=== PATIENT | male | born 2000 | race African-American/Black ===

== ENCOUNTER 2020-12-11 12:34 | Emergency (ER) | payer OTHER ==
[~2020-12-11] VITALS: Ht 195.6 cm; Wt 90.7 kg
[2020-12-11] MEDS ORDERED: OLANZAPINE 10 MG VIAL IM ONE ×2 (12:47→12:54)
[2020-12-11] MEDS: OLANZAPINE 10 MG VIAL IM ONE (12:54)
[2020-12-11 13:01] LABS: BASOPHILS % (AUTO) 0.4 % (0.0-2.0); EOSINOPHILS % (AUTO) 2.3 % (0.0-6.0); HEMATOCRIT 39 % (39-51); HEMOGLOBIN 12.8 g/dL (13.5-17.5); LYMPHOCYTES # (AUTO) 1.6 K/uL (0.8-4.8); LYMPHOCYTES % (AUTO) 19.2 % (20.0-44.0); MEAN CORPUSCULAR HGB CONC 33 g/dl (31.0-36.0); MEAN CORPUSCULAR VOLUME 89 fL (80-96); MONOCYTES # (AUTO) 0.7 K/uL (0.1-1.30); MONOCYTES % (AUTO) 8.2 % (2.0-12.0); NEUTROPHILS # (AUTO) 5.9 K/uL (1.8-8.9); NEUTROPHILS % (AUTO) 69.9 % (43.0-81.0); PLATELET COUNT (AUTO) 212 K/uL (150-450); RED BLOOD CELL COUNT(AUTO) 4.34 MIL/uL (4.5-6.0); WHITE BLOOD COUNT (AUTO) 8.5 K/uL (4.3-11.0)
--- NOTE | 2020-12-11 13:03 | NUR ---
BIBMOTHER TO ER BED 13. PT DROWSY BUT ARROSUABLE. NOT IN RESP DISTRESS. AMBULATORY. PT BROUGHT IN D/T UNABLE TO CARE FOR HIMSELF BECAUSE OF HOMELESSNESS. PT HAS NOT BEEN ABLE TO TAKE HIS MEDICATION WHICH HELPS HIM WITH THE VOICES. WAS AT THE BEDSIDE FOR EVAL. ORDERS RECEIVED, NOTED AND CARRIED OUT.
[2020-12-11 13:20] LABS: CALCIUM, SERUM 8.2 mg/dL (8.5-10.1); CARBON DIOXIDE 31 mmol/L (21-32); CHLORIDE 103 mmol/L (98-107); CREATININE 1.3 mg/dL (0.6-1.3); GLUCOSE 81 mg/dL (74-106); POTASSIUM 3.4 mmol/L (3.5-5.1); SODIUM SERUM 139 mmol/L (136-145); UREA NITROGEN, BLOOD 9 mg/dL (7-18)
[2020-12-11 13:26] LABS: ALANINE AMINOTRANSFERASE 41 U/L (12-78); ALBUMIN 3.3 g/dL (3.4-5.0); ALKALINE PHOSPHATASE 71 U/L (46-116); ASPARTATE AMINOTRANSFERASE 38 U/L (15-37); BILIRUBIN,DIRECT 0.3 mg/dL (0.0-0.2); BILIRUBIN,TOTAL 2.1 mg/dL (0.2-1.0); TOTAL PROTEIN, SERUM 6.3 g/dL (6.4-8.2)
[2020-12-11 13:27] LABS: ACETAMINOPHEN < 10 ug/ml (10-30); ALCOHOL, BLOOD < 3 mg/dL (0-0)
--- NOTE | 2020-12-11 13:40 | NUR ---
PT STILL UNABLE TO PROVIDE URINE. MOTHER AT BEDSIDE ENCOURAGING PT TO URINATE.
--- NOTE | 2020-12-11 14:33 | NUR ---
mother number christopher power [phone]
--- NOTE | 2020-12-11 14:39 | NUR ---
[facility]
[2020-12-11] MEDS: LORAZEPAM INJ 2 MG/ML VIAL IM ONE (15:01)
[2020-12-11] MEDS: HALOPERIDOL LACTATE INJ 5 MG/ML VIAL IM ONE (15:02)
--- NOTE | 2020-12-11 15:02 | NUR ---
pt fighting and yelling ativan2 mg and haldol 5mg im rt deltoid im tolerated well
[2020-12-11 15:24] LABS: BILIRUBIN,URINE NEGATIVE (NEGATIVE); COLOR,URINE YELLOW (YELLOW); LEUKOCYTE ESTERASE ,URINE NEGATIVE (NEGATIVE); NITRITE, URINE NEGATIVE (NEGATIVE); PROTEIN,URINE NEGATIVE (NEGATIVE); UGLUCOSE NEGATIVE (NEGATIVE)
[2020-12-11 15:32] LABS: BACTERIA,URINE None seen /HPF (None Seen); RBC,URINE 0-2 /HPF (0-2); WBC,URINE 0-2 /HPF (0-3)
[2020-12-11 15:33] LABS: SQUAMOUS EPITHELIAL CELL,UR 0-2 /HPF (None Seen)
--- NOTE | 2020-12-11 17:38 | NUR ---
pt sleeping soundly cont to [facility]
--- NOTE | 2020-12-11 21:46 | NUR ---
expressive art therapist at bedside
--- NOTE | 2020-12-11 23:40 | NUR ---
PT IN BED SLEEPING. NAD NOTED
--- NOTE | 2020-12-12 01:45 | NUR ---
Patient is resting comfortably in bed with eyes closed. Easily aroused. VSS
--- NOTE | 2020-12-12 02:30 | NUR ---
Patient is resting comfortably in bed with eyes closed. Easily aroused. VSS
--- NOTE | 2020-12-12 03:45 | NUR ---
Pt resting with eyes closed connected to monitor. easily arousable
--- NOTE | 2020-12-12 04:45 | NUR ---
Patient is resting comfortably in bed with eyes closed. Easily aroused. VSS
--- NOTE | 2020-12-12 06:30 | NUR ---
pt sleeping, attached to monitor, vss
--- NOTE | 2020-12-12 09:09 | NUR ---
The patient is sleeping. Respiration regular and unlabored. Patient is in no apparent distress. Vital sigsn WNL. Will continue to monitor the patient.
[2020-12-12 13:58] VITALS: BP 126/77
--- NOTE | 2020-12-12 13:58 | NUR ---
THE PATIENT SLEEPING. RESPONSIVE TO TACTILE STIMULI. VITAL SIGNS WNL.
--- NOTE | 2020-12-12 19:25 | NUR ---
ACCEPTED [facility] DR [facility]LEY [phone]
--- NOTE | 2020-12-12 19:49 | NUR ---
CALLED TRANSPORT [facility] ETA 45 MINS.
--- NOTE | 2020-12-12 20:22 | NUR ---
REPORT GIVEN Jv PARSON AT [facility] [place]. [facility] AT BED SIDE TO PATCH WASHER THE PT.
== END 2020-12-12 20:35 ==
LOC: ER 12:35
DX: F20.9 Schizophrenia, unspecified (principal); Z59.0 Homelessness; Z91.14 Patient's other noncompliance with medication regimen; Z20.822 Contact with and (suspected) exposure to COVID-19
CPT/HCPCS: 36415; 80048; 80076; 80143; 80307; 80320; 81001; 85025; 87426; 96372 ×2; 99285; C9803; J2060; J3490 ×2; G0480

== ENCOUNTER → 2020-12-11 | Emergency (ER) | payer SELFPAY ==
[~2020-12-11] VITALS: Ht 190.5 cm; Wt 96.6 kg
[2020-12-11 07:48] VITALS: BP 128/63
--- NOTE | 2020-12-11 07:49 | NUR ---
Sleeping, Rousable with verbal stimuli but drifts off. VS NO obvious distress respirations even/unlabored
== END | disposition home or self-care (01) ==
LOC: ER 06:00 → EDBD 06:00
DX: R45.1 Restlessness and agitation (principal); Z59.0 Homelessness